=== PATIENT | female | born 1970 | race Caucasian/White ===

== ENCOUNTER 2021-12-22 15:36 | Emergency (ER) | payer OTHER ==
[~2021-12-22] VITALS: Ht 160 cm; Wt 86.4 kg
[2021-12-22] MEDS ORDERED: HYDR-3831 PO (16:29)
[2021-12-22] MEDS ORDERED: BENZ-70 PO (16:29)
[2021-12-22] MEDS ORDERED: BUSP10TA23 PO (16:29)
[2021-12-22 16:49] LABS: BASOPHILS % (AUTO) 0.6 % (0.0-2.0); EOSINOPHILS % (AUTO) 0.1 % (1.0-6.0); HEMATOCRIT 44.2 % (36-46); HEMOGLOBIN 14.9 g/dL (12.0-16.0); LYMPHOCYTES # (AUTO) 0.9 K/uL (1.0-4.8); LYMPHOCYTES % (AUTO) 8.8 % (22.0-44.0); MEAN CORPUSCULAR HEMOGLOBIN 28.7 pg (26.0-34.0); MEAN CORPUSCULAR HGB CONC 33.7 G/dL (31.0-37.0); MEAN CORPUSCULAR VOLUME 85 fL (80-100); MONOCYTES # (AUTO) 0.8 K/uL (0.1-1.0); MONOCYTES % (AUTO) 7.7 % (2.0-9.0); NEUTROPHILS # (AUTO) 8.6 K/uL (1.8-7.7); NEUTROPHILS % (AUTO) 82.8 % (40.0-70.0); PLATELET COUNT (AUTO) 337 K/uL (150-450); RED BLOOD CELL COUNT(AUTO) 5.18 MIL/uL (4.00-5.20)
[2021-12-22 16:57] LABS: ANION GAP 11 mmol/L (8-16); CALCIUM, TOTAL 9.5 mg/dL (8.8-10.5); CARBON DIOXIDE 28 mmol/L (22-29); CHLORIDE 104 mmol/L (98-107); CREATININE 0.75 mg/dL (0.60-1.30); GLOMERULAR FILTR. RATE CALC > 60 mL/min (>60); GLUCOSE,RANDOM 100 mg/dL (70-110); POTASSIUM 3.3 mmol/L (3.5-5.1); SODIUM SERUM 143 mmol/L (136-145); UREA NITROGEN, BLOOD 16 mg/dL (7-18)
[2021-12-22 17:03] LABS: ALANINE AMINOTRANSFERASE 31 U/L (12-78); ALBUMIN 3.9 g/dL (3.4-5.0); ALKALINE PHOSPHATASE 69 U/L (46-116); ASPARTATE AMINOTRANSFERASE 22 U/L (15-37); BILIRUBIN,TOTAL 0.4 mg/dL (0.1-1.0); TOTAL PROTEIN, SERUM 7.5 g/dL (6.4-8.2)
[2021-12-22] MEDS ORDERED: POTASSIUM CHLORIDE 10% 40 MEQ/30 ML LIQUID UDCUP PO ONE (17:15)
[2021-12-22 17:23] LABS: COVID AG,FIA SOURCE NASOPHARYNGEAL
[2021-12-22 20:47] VITALS: BP 144/88
== END 2021-12-22 23:06 | disposition short-term general hospital (02) ==
LOC: EMS 15:44
DX: F29 Unspecified psychosis not due to a substance or known physiological condition (principal); R45.851 Suicidal ideations; Z20.822 Contact with and (suspected) exposure to COVID-19
CPT/HCPCS: 36415; 80053; 85025; 87426; 99285; G0480

== ENCOUNTER 2025-05-05 11:23 | Inpatient (IN) | payer MEDICAID, OTHER ==
[~2025-05-05] VITALS: Ht 160 cm; Wt 60.0 kg
[~2025-05-05 11:23] MED LIST: BENZ-227 PO; BUSP10TA23 PO; HYDR-3831 PO
[2025-05-05 11:40] VITALS: O2SAT 98
[2025-05-05 11:52] LABS: COVID AG,FIA SOURCE NASAL SWAB
[2025-05-05 11:53] LABS: PLATELET COUNT (AUTO) 304 K/uL (150-450); RED BLOOD CELL COUNT(AUTO) 5.13 MIL/uL (4.00-5.20); RED CELL DISTRIBUTION WIDTH 14.4 % (11.5-14.5); WHITE BLOOD COUNT (AUTO) 8.8 K/uL (4.5-11.0)
[2025-05-05 11:58] LABS: CALCIUM, TOTAL 8.8 mg/dL (8.8-10.5); CREATININE 0.56 mg/dL (0.60-1.30); GLOMERULAR FILTR. RATE CALC > 60 mL/min (>60); GLUCOSE,RANDOM 129 mg/dL (70-110); SODIUM SERUM 135 mmol/L (136-145); UREA NITROGEN, BLOOD 12 mg/dL (7-18)
[2025-05-05 12:32] LABS: SARS-COV2 (COVID) ANTIGEN,FIA Negative (Negative)
[2025-05-05 13:00] LABS: PH,URINE DRUG SCREEN 6.5 (5.0-8.0)
[2025-05-05 13:06] LABS: ALCOHOL, URINE DRUG SCREEN NEGATIVE (NEGATIVE); AMPHET/METH SCREEN,URINE NEGATIVE (NEGATIVE); BARBITURATE SCREEN, URINE NEGATIVE (NEGATIVE); CANNABINOID SCREEN,URINE NEGATIVE (NEGATIVE); COCAINE SCREEN,URINE NEGATIVE (NEGATIVE); METHADONE SCREEN, URINE NEGATIVE (NEGATIVE)
[2025-05-05 18:58] VITALS: BP 150/96; PULSE 95; RESP 16; TEMP 97; O2SAT 99
[2025-05-05] MEDS ORDERED: ONDANSETRON 4 MG TABLET PO PRN (19:30)
[2025-05-05] MEDS ORDERED: IBUPROFEN 600 MG TABLET PO PRN (19:30)
[2025-05-05] MEDS ORDERED: BACITRACIN 28 GM OINTMENT TP PRN (19:30)
[2025-05-05] MEDS ORDERED: OMEPRAZOLE 20 MG CAPSULE PO PRN (19:30)
[2025-05-05] MEDS ORDERED: ACETAMINOPHEN 325 MG TABLET PO PRN (19:30)
[2025-05-05] MEDS ORDERED: DOCUSATE SODIUM 100 MG CAPSULE PO PRN (19:30)
[2025-05-05] MEDS ORDERED: MAGNESIUM HYDROXIDE SUSPENSION 30 ML UDCUP PO PRN (19:30)
[2025-05-05] MEDS ORDERED: LOPERAMIDE HCL 2 MG CAPSULE PO PRN (19:30)
[2025-05-05] MEDS ORDERED: ALBUTEROL SULFATE HFA 90 MCG/PUFF 8 GM INHALER IH PRN (19:30)
[2025-05-05] MEDS ORDERED: PETROLATUM,WHITE 28 GM JELLY TP PRN (19:30)
[2025-05-05] MEDS ORDERED: BENZOCAINE/MENTHOL [CEPACOL] LOZENGE PO PRN (19:30)
[2025-05-06 08:16] VITALS: BP 111/58; PULSE 100; RESP 18; TEMP 98.2; O2SAT 97
[2025-05-06 10:27] LABS: PLATELET COUNT (AUTO) 279 K/uL (150-450); RED BLOOD CELL COUNT(AUTO) 4.75 MIL/uL (4.00-5.20); RED CELL DISTRIBUTION WIDTH 14.4 % (11.5-14.5); WHITE BLOOD COUNT (AUTO) 9.3 K/uL (4.5-11.0)
[2025-05-06 14:23] LABS: ASPARTATE AMINOTRANSFERASE 11 U/L (15-37); CALCIUM, TOTAL 8.7 mg/dL (8.8-10.5); CHOL/HDL RATIO 4.9 (3.9-5.7); CREATININE 0.64 mg/dL (0.60-1.30); GLOMERULAR FILTR. RATE CALC > 60 mL/min (>60); GLUCOSE,RANDOM 75 mg/dL (70-110); LDL CHOL (CALC.) 152 mg/dL (0-130); SODIUM SERUM 141 mmol/L (136-145); TOTAL PROTEIN, SERUM 6.2 g/dL (6.4-8.2); UREA NITROGEN, BLOOD 14 mg/dL (7-18)
[2025-05-06 20:28] VITALS: BP 120/75; PULSE 97; RESP 18; TEMP 98; O2SAT 98
[2025-05-06] MEDS: OLANZapine 7.5 MG TABLET PO SCH (20:38)
[2025-05-07 04:07] LABS: HEPATITIS C AB (EIA) Non Reactive (Non Reactive)
[2025-05-07 08:10] VITALS: BP 122/69; PULSE 99; RESP 18; TEMP 98.3; O2SAT 97
[2025-05-07 20:04] VITALS: BP 150/68; PULSE 97; RESP 16; TEMP 98.2; O2SAT 98
[2025-05-07 20:13] VITALS: BP 128/82; PULSE 97; RESP 17; TEMP 97.3; O2SAT 96
[2025-05-07] MEDS: MAG HYDROX/ALUMINUM HYD/SIMETH ES 30 ML SUSPENSION UDCUP PO PRN (20:20)
[2025-05-07] MEDS: ROSUVASTATIN CALCIUM 10 MG TABLET PO SCH (20:26)
[2025-05-07] MEDS: ZOLPIDEM TARTRATE 10 MG TABLET PO PRN (20:43)
[2025-05-08 08:13] VITALS: BP 133/75; PULSE 89; RESP 16; TEMP 97.5; O2SAT 98
[2025-05-08 20:00] VITALS: BP 124/83; PULSE 90; RESP 17; TEMP 97.9; O2SAT 98
[2025-05-09 08:32] VITALS: BP 138/93; PULSE 97; RESP 18; TEMP 97.9; O2SAT 98
[2025-05-09 20:08] VITALS: BP 106/63; PULSE 100; RESP 17; TEMP 98.1
[2025-05-10 08:15] VITALS: BP 123/73; PULSE 75; RESP 17; TEMP 98.2; O2SAT 96
[2025-05-10 20:17] VITALS: BP 123/76; PULSE 84; RESP 17; TEMP 97.2; O2SAT 98
[2025-05-11] MEDS ORDERED: OLAN7.5T22 PO (08:26)
[2025-05-11 08:28] VITALS: RESP 16
[2025-05-11] MEDS ORDERED: ROSU10TA72 PO (08:29)
== END 2025-05-11 11:05 | disposition home or self-care (01) | DRG 753 ==
LOC: EMS 11:23 → B3A 15:54
PROVIDERS: ADMIT Psychiatry & Neurology Psychiatry; ATTEND Psychiatry & Neurology Psychiatry
DX: F31.9 Bipolar disorder, unspecified (principal); F25.9 Schizoaffective disorder, unspecified; I10 Essential (primary) hypertension; E78.5 Hyperlipidemia, unspecified; F41.9 Anxiety disorder, unspecified; G47.00 Insomnia, unspecified; K59.00 Constipation, unspecified
CPT/HCPCS: 80048; 80053; 80061; 80307; 83036; 84436; 84439; 85025; 86803; 87340; 99285; G0480